=== PATIENT | male | born 1975 | race Caucasian/White ===

== ENCOUNTER 2021-05-22 15:15 | Outpatient (CLI) | payer BC, OTHER ==
--- NOTE | 2021-05-22 16:22 | SLEEP CARE CONSULTATION ---
Information from patient questionnaire entered by Michelle Camarillo MA. I have reviewed and concur with the information entered by Michelle Camarillo MA. This document represents the service I personally performed and the decisions made by me, Nancy Banuelos ARNP. History of Present Illness Service Date and Time: 05/22/2021 1515 Reason for Visit: New patient (ONSET 03/2006, ON CPAPA, ), Previously diagnosed sleep apnea, sleep apnea on CPAP therapy Chief Complaint: reports: Other (getting sleep provider closer to home) Date of Onset: PLUS 10 YEARS Usual bedtime: 9-10 PM Time it takes to fall asleep: 15 MINUTES Observed to quit breathing while asleep: Yes Sleeps alone due to snoring: No Number of times waking at night: 2 Reasons for waking at night: reports: Bathroom Toss, Turn, or Twitch while sleeping: Yes Recalls having dreams: Yes Usually gets out of bed at: 0630 Feels refreshed in the morning: Yes Morning headache: No Sleepy or fatigued during the day: No Ever fallen asleep while driving: No Takes day naps: Yes Dreams during day naps: Yes Prior sleep studies: Yes Year and Where: about 2011 at [facility]? Type of Sleep Study: Polysomnography Additional HPI information: MANDEEP POOL was previously diagnosed to have unknown, AHI unknown, sleep apnea-hypopnea syndrome and comes in today to establish care for CPAP therapy. - Parasomnia Symptoms Ever been unable to move upon waking from sleep: No Walks in sleep: No Talks in sleep: No Ever acted out dreams in sleep: Yes Ever felt weak in the knees when startled or emotional: No Bothered by creepy, crawly, restless sensations in legs: No Problems with memory or concentration: No CPAP Compliance Data - Data Reviewed with Patient Average duration of nightly device use: 6 hours 56 minutes Compliance rate %: 97 Current pressure setting (cmH2O): 8-11 Average residual AHI: 0.4 Central apnea: 0.1 Obstructive apnea: 0.2 Compliance data discussion: He has been getting his CPAP supplies through [employer]. He does not need supplies at this time. He is using a nasal mask, Mirage FX. Subjective Patient concerns: denies: aerophagia, mask discomfort, air blowing in eyes, mask leak noise, condensation in mask/hose, nasal congestion, dry mouth, nose, throat, epistaxis Observed to snore while using device: No (some times, not all the time) Current pressure setting perceived as: comfortable On therapy, patient: reports: sleeping better, awakening more refreshed, being more awake and alert during the day, more rested overall. 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 Patient is and lives in [place]. Have you smoked in the past 12 months: No Alcohol use: No Caffeine use: No Family History Family history of sleep disordered breathing: Yes Family Hx Sleep Apnea: Mother: Snoring, Sleep apnea - Untreated Allergies and Home Medications Known drug allergies: No Drug allergies reviewed: Yes (NKDA) Home medication list reviewed: Yes (no medications daily) Allergy and home medication list: Multivitamins Review of Systems Weight gain over past 5 years: 5 Cardiovascular: reports: irregular heart rate or pulse. denies: high blood pressure Gastrointestinal: reports: abdominal pain. denies: heartburn Neurological: denies: headaches, head trauma Psychiatric: denies: anxiety, depression Ear/Nose/Throat: reports: injury to nose (surgery for small upper palate), wisdom teeth removed, other (born with cleft palate). denies: dry mouth/throat, tonsillectomy Endocrine: denies: thyroid disease Musculoskeletal: reports: joint pain, back pain, joint swelling Immunologic: reports: itching. denies: allergies to food or environment Physical Exam Blood Pressure: 112/76 (right) Cuff size: wrist Heart Rate: 60 O2 Saturation: 97 (paper mask) Height: 5 ft 9 in Weight: 183 lb (clothed) Body Mass Index: 27.0 BMI Classification: Overweight Heart: regular rate and rhythm Lungs: clear bilaterally Impression and Plan 1. Obstructive Sleep Apnea-Hypopnea Syndrome, unknown, with good treatment compliance and good apnea control. On CPAP therapy, the patient has better sleep quality and is more rested overall. Patient is just transferring care to something more local. He has been obtaining his supplies from [employer]. He does not have a copy of his sleep study so we will request this from his last sleep provider or DME company. Once I have this I will be able to send an updated prescription to [employer]. Patient's apnea severity and rationale for treatment to reduce apnea, improve sleep quality and reduce cardiovascular and cerebrovascular events was reviewed. I also reviewed the benefit of consistent device use of CPAP for arrhythmias. * Continue auto CPAP pressure at 8-11 cmH2O * Obtain a copy of last sleep study * Send updated prescription to DME ([employer]) once we have sleep study * Notify me if snoring with mask or feeling that the pressure is too much or too little * Maintain a healthy weight * Call this office if any problems using CPAP * Return for follow up in 1 year, or sooner if concerns arise Counseling Topics: Weight control Visit Type: In Office Time Spent with Patient (minutes): 37 Provider Statement: I spent 100% of the Face to Face Visit with the patient with greater than 50% spent counseling the patient and coordination of care.
[2021-05-22 16:29] VITALS: BP 112/76
== END 2021-05-22 15:16 | disposition home or self-care (01) ==
LOC: SC 15:15
PROVIDERS: ATTEND Nurse Practitioner Family
DX: G47.33 Obstructive sleep apnea (adult) (pediatric) (principal)
CPT/HCPCS: 99203; 99212

== ENCOUNTER 2022-07-25 15:51 | Outpatient (CLI) | payer BC ==
--- NOTE | 2022-07-25 16:43 | Sleep Patient Instructions ---
Sleep Center Visit Summary - Patient Visit Information Reason for Visit: Annual follow up for CPAP therapy - Patient Instructions Additional Instructions: You will continue with CPAP therapy with pressure set at 8-11 cmH2O. A supply prescription will be updated with your DME. We encourage you to continue to try to lose weight. Please follow up with the sleep care office in 1 year. - Clinic Information Contact: [facility] [address] [place] [address] [email or web address] T: [phone]
--- NOTE | 2022-07-25 16:55 | SLEEP CARE CONSULTATION ---
Information from patient questionnaire entered by Venkatesh Douglas. I have reviewed and concur with the information entered by Venkatesh Douglas. This document represents the service I personally performed and the decisions made by me, Nancy Banuelos ARNP. History of Present Illness Service Date and Time: 07/25/2022 1551 Previous diagnosis: Mild, Other (Upper Airway Resistance Syndrome) Reason for follow up: annual (LAST SEEN 05/2021) Equipment type: CPAP (RESMED Airsense 10; s/u 06/2018) Equipment obtained from: [employer] (getting supplies as needed) Mask style: Nasal Mask brand: Resmed (Mirage FX) Backup mask available: Yes (other mask) Last cushion change: 1 month Prior sleep studies: Yes Year and Where: about 2011 at [facility]? Type of Sleep Study: Polysomnography HPI additional information: MANDEEP POOL was diagnosed to have mild, AHI 1.8 with RDI 6.0, upper airway resistance syndrome and returned today for CPAP therapy annual follow-up. Sleep Study - Results Type of Sleep Study: Polysomnography Prior sleep studies: Yes Year and Where: about 2011 at [facility]? CPAP Compliance Data - Data Reviewed with Patient Average duration of nightly device use: 7 HRS 11 MINS Compliance rate %: 100 (01/25/22-07/23/22; 180/180 days used) Current pressure setting (cmH2O): 8-11 Average residual AHI: 0.5 Central apnea: 0.1 Obstructive apnea: 0.2 Hypopnea: 0.2 Average large leak: 0 lpm Subjective Patient concerns: reports: aerophagia ([id number] times a month). denies: mask discomfort, air blowing in eyes, mask leak noise, condensation in mask/hose, nasal congestion, dry mouth, nose, throat, epistaxis Observed to snore while using device: Yes (occasionally; but rare in last year) Current pressure setting perceived as: comfortable On therapy, patient: reports: sleeping better, awakening more refreshed, being more awake and alert during the day, more rested overall. denies: drowsiness while driving Initial [place] Sleepiness Scale score: 5 (05/2021) Current [place] Sleepiness Scale score: 4 (07/25/22) Allergies and Home Medications Known drug allergies: No Drug allergies reviewed: Yes Home medication list reviewed: Yes (no changes) Review of Systems Review of systems same as previous: Yes (no changes) Physical Exam Vital signs obtained and entered by: VENKATESH Wade MA Blood Pressure: 102/58 (LEFT ARM) Cuff size: regular Heart Rate: 48 O2 Saturation: 99 Height: 5 ft 9 in Weight: 185 lb 6.4 oz Weight change since last visit: 2 lb gain Body Mass Index: 27.3 BMI Classification: Overweight Impression and Plan 1. Upper Airway Resistance Syndrome, mild, with good treatment compliance and go od apnea control. On CPAP therapy, the patient has better sleep quality and is more rested overall. He states he sometimes get some bloating feeling but he states it is not uncomfortable and likes the pressure settings. I will not adjust his pressure at this time. He was instructed to let me know if the aerophagia gets more consistent and becomes painful. He voiced understanding and agreement. Patient's apnea severity and rationale for treatment to reduce apnea, improve sleep quality and reduce cardiovascular and cerebrovascular events was reviewed. I also reviewed the benefit of consistent device use of CPAP for arrhythmia. 2. Overweight, unspecified. Currently patients BMI is 27.3. Obesity increases the risk of apnea, CPAP pressure requirements and overall health risks especially cardiovascular and diabetes. Thus patient is advised to lose weight. * Continue auto CPAP pressure at 8-11 cmH2O * Update supplies * Notify me if snoring with mask or feeling that the pressure is too much or too little * Attempt to lose weight * Call this office if any problems using CPAP * Return for follow up in 1 year, or sooner if concerns arise Counseling Topics: Spare mask, Weight loss health impact Visit Type: In Office Time Spent with Patient (minutes): 25 Provider Statement: I spent 100% of the Face to Face Visit with the patient with greater than 50% spent counseling the patient and coordination of care.
[2022-07-25 17:00] VITALS: BP 102/58
== END 2022-07-25 15:52 | disposition home or self-care (01) ==
LOC: SC 15:51
PROVIDERS: ATTEND Nurse Practitioner Family
DX: G47.8 Other sleep disorders (principal); E66.3 Overweight; Z68.27 Body mass index [BMI] 27.0-27.9, adult
CPT/HCPCS: 99212; 99213

== ENCOUNTER 2023-10-09 15:38 | Outpatient (CLI) | payer BC ==
--- NOTE | 2023-10-09 16:03 | Sleep Patient Instructions ---
Sleep Center Visit Summary - Patient Visit Information Reason for Visit: Annual follow-up - Patient Instructions Additional Instructions: You will continue with CPAP therapy with pressure set at 8-11 cmH2O. A supply prescription will be updated with your DME. We encourage you to continue to try to lose weight. Please follow up with the sleep care office in 1 year. - Clinic Information Contact: [facility] [address] [place] [address] [email or web address] T: [phone]
[2023-10-09 16:05] VITALS: BP 110/69; O2SAT 96
--- NOTE | 2023-10-09 16:05 | SLEEP CARE CONSULTATION ---
Information from patient questionnaire entered by Venkatesh Douglas. I have reviewed and concur with the information entered by Venkatesh Douglas. This document represents the service I personally performed and the decisions made by me, Nancy Banuelos ARNP. History of Present Illness Service Date and Time: 10/09/2023 1538 Previous diagnosis: Mild, Other (Upper Airway Resistance Syndrome) Reason for follow up: annual (LASST SEEN 07/2022) Equipment type: CPAP (RESMED Airsense 10; s/u 06/2018) Equipment obtained from: [employer] (getting supplies as needed) Mask style: Full face Mask brand: Resmed (AirFit [id number]) Backup mask available: Yes Last cushion change: 2 weeks Prior sleep studies: Yes Year and Where: about 2011 at [facility]? Type of Sleep Study: Polysomnography HPI additional information: MANDEEP POOL was diagnosed to have mild, AHI 1.8 with RDI 6, upper airway resistance syndrome and returned today for CPAP therapy annual follow-up. Sleep Study - Results Type of Sleep Study: Polysomnography Prior sleep studies: Yes Year and Where: about 2011 at [facility]? CPAP Compliance Data - Data Reviewed with Patient Average duration of nightly device use: 7 HRS 27 MINS Compliance rate %: 99 (10/07/22-10/06/23; 362/365 days used) Current pressure setting (cmH2O): 8-11 Average residual AHI: 0.7 (RERA 0.0) Central apnea: 0.1 Obstructive apnea: 0.3 Hypopnea: 0.2 Average large leak: 1.8 L/min Subjective Missed days of use due to: reports: travel Patient concerns: reports: condensation in mask/hose (rare). denies: aerophagia, mask discomfort, air blowing in eyes, mask leak noise, nasal congestion, dry mouth, nose, throat, epistaxis Observed to snore while using device: No Current pressure setting perceived as: comfortable On therapy, patient: reports: sleeping better, awakening more refreshed, being more awake and alert during the day, more rested overall. denies: drowsiness while driving Initial [place] Sleepiness Scale score: 5 (05/2021) Current [place] Sleepiness Scale score: 7 (10/09/23) Allergies and Home Medications Known drug allergies: No Drug allergies reviewed: Yes Home medication list reviewed: Yes (Naproxen) Allergy and home medication list: Allergies No Known Drug Allergies Allergy (Verified 10/09/23 15:42) Review of Systems Review of systems same as previous: No (BACK PAIN) Physical Exam Vital signs obtained and entered by: VENKATESH Wade MA Blood Pressure: 110/69 (RIGHT ARM) Cuff size: regular Heart Rate: 52 O2 Saturation: 96 Height: 5 ft 9 in Weight: 189 lb 9.6 oz Body Mass Index: 28.0 BMI Classification: Overweight Impression and Plan 1. Upper Airway Resistance Syndrome, mild, with good treatment compliance and good apnea control. On CPAP therapy, the patient has better sleep quality and is more rested overall. Patient has significant improvement of their UARS and is satisfied with current CPAP therapy. Patient denies problems with oral dryness, nasal congestion, epistaxis, skin irritation or aerophagia. Patient's apnea severity and rationale for treatment to reduce apnea, improve sleep quality and reduce cardiovascular and cerebrovascular events was reviewed. I also reviewed the benefit of consistent device use of CPAP for arrhythmia. 2. Overweight, unspecified. Currently patients BMI is 28. Obesity increases the risk of apnea, CPAP pressure requirements and overall health risks especially cardiovascular and diabetes. Thus patient is advised to lose weight. * Continue auto CPAP pressure at 8-11 cmH2O * Update supply prescription * Notify me if snoring with mask or feeling that the pressure is too much or too little * Attempt to lose weight * Call this office if any problems using CPAP * Return for follow up in 12 months, or sooner if concerns arise Counseling Topics: Spare mask, Weight loss health impact Prescriptions: Device supplies Follow up with Sleep Care in: 1 year Visit Type: In Office Time Spent with Patient (minutes): 21 Provider Statement: I spent 100% of the Face to Face Visit with the patient with greater than 50% spent counseling the patient and coordination of care.
== END 2023-10-09 15:39 | disposition home or self-care (01) ==
LOC: SC 15:38
PROVIDERS: ATTEND Nurse Practitioner Family
DX: G47.8 Other sleep disorders (principal); E66.3 Overweight; Z68.28 Body mass index [BMI] 28.0-28.9, adult
CPT/HCPCS: 99212; 99213